=== PATIENT | male | born 1975 | race Hispanic/Latino ===

== ENCOUNTER 2016-07-12 12:55 | Observation (INO) | payer BC ==
[2016-07-12 13:16] VITALS: BMI 37.9
--- NOTE | 2016-07-12 13:20 | ED PDOC ---
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 Donna Ndiaye, with 3 day h/o intermittent L sharp CP. Patient states he was working on a boat on Friday and while physically exerting himself, he started feeling stabbing left-sided CP, SOB, dizziness, and diaphoresis. Episode lasted "a few minutes" but returned the following day. patient states he has been having intermittent episodes of sharp stabbing CP with dyspnea and dizziness since that time. Smoking worsens the symptoms and not smoking and ASA improve the symptoms. Patient saw his child care nurse today, who sent him to the ER. Patient denies headache, confusion, radiation of CP, abd pain, n/v/d, fevers, chills. Patient denies any symptoms currently and states he does not have CP at this time. (Cande Bowers) Past Medical History - Provider Review Nursing Documentation Reviewed: Yes - Travel History Have you recently traveled outside [place] w/in the past 3 mons?: No - Infectious Disease Hx of Infectious Diseases: None - Tetanus Immunization Tetanus Immunization: >10 years Ago - Endocrine/Metabolic Hx Hypothyroidism: Yes - Hematological/Oncological Hx Anemia: Yes - Psychiatric Hx Depression: Yes Hx Emotional Abuse: No Hx Physical Abuse: No Hx Substance Use: No - Past Surgical History Past Surgical History: No Previous - Anesthesia Hx Anesthesia: No Hx Anesthesia Reactions: No Hx Malignant Hyperthermia: No - Suicidal Assessment Feels Threatened In Home Enviroment: No <Cande Bowers - Last Filed: 07/12/16 15:02> Family/Social History - Physician Review Nursing Documentation Reviewed: Yes Family/Social History: CVA/TIA, Diabetes, Hypertension, CAD/[place] Smoking Status: Never Smoked Hx Alcohol Use: Yes Hx Substance Use: No Hx Substance Use Treatment: No <Cande Bowers - Last Filed: 07/12/16 15:02> Allergies/Home Meds <Cande Bowers - Last Filed: 07/12/16 15:02> <Layo Crawford - Last Filed: 07/12/16 15:24> Allergies/Adverse Reactions: Allergies No Known Allergies Allergy (Verified 07/12/16 13:09) Home Medications: Home Meds Medication Instructions Recorded Confirmed Levothyroxine [Synthroid] 0.3 mg PO DAILY 07/12/16 07/12/16 Review of Systems - Physician Review All systems were reviewed & negative as marked: Yes - Review of Systems Constitutional: absent: Fatigue, Fevers Eyes: absent: Vision Changes ENT: Normal Respiratory: SOB (intermittent). absent: Cough, Sputum Cardiovascular: Chest Pain (L stabbing, sharp intermittent CP). absent: Palpitations, Edema, Calf Pain, Syncope Gastrointestinal: absent: Abdominal Pain, Constipation, Diarrhea, Nausea, Vomiting Genitourinary Male: absent: Dysuria, Hematuria Musculoskeletal: absent: Back Pain, Neck Pain Skin: absent: Rash, Skin Lesions Neurological: Dizziness. absent: Headache Endocrine: Diaphoresis Psychiatric: absent: Anxiety, Depression, Suicidal Ideation <Cande Bowers - Last Filed: 07/12/16 15:02> Physical Exam Temperature: Afebrile Blood Pressure: Normal Pulse: Regular Respiratory Rate: Normal Appearance: Positive for: Well-Appearing, Non-Toxic, Comfortable Pain Distress: None Mental Status: Positive for: Alert and Oriented X 3 - Systems Exam Head: Present: Atraumatic, Normocephalic Pupils: Present: PERRL. No: Sluggish Extroacular Muscles: Present: EOMI Conjunctiva: Present: Normal. No: Injected, Icteric Ears: Present: Normal Mouth: Present: Moist Mucous Membranes Neck: Present: Normal Range of Motion. No: Meningeal Signs, JVD Respiratory/Chest: Present: Clear to Auscultation, Good Air Exchange. No: Respiratory Distress, Accessory Muscle Use, Wheezes, Rales, Tender to Palpation Cardiovascular: Present: Regular Rate and Rhythm, Normal S1, S2. No: Murmurs Abdomen: Present: Normal Bowel Sounds. No: Tenderness, Distention, Peritoneal Signs, Rebound, Guarding Upper Extremity: Present: Normal Inspection. No: Cyanosis, Edema Lower Extremity: Present: Normal Inspection. No: Edema, CALF TENDERNESS Neurological: Present: GCS=15, CN II-XII Intact, Speech Normal Skin: Present: Warm, Dry, Normal Color. No: Rashes Psychiatric: Present: Alert, Oriented x 3, Normal Insight, Normal Concentration <LorabarrettCande - Last Filed: 07/12/16 15:02> Vital Signs Temp Pulse Resp BP Pulse Ox 07/12/16 13:04 98.1 F 71 16 127/77 100 Medical Decision Making Re-evaluation Time: 14:22 Reassessment Condition: Re-examined, Improved - Lab Interpretations Interpretation: All labs normal - RAD Interpretation Department Store General Manager: Radiologist - EKG Interpretation Interpreted by ED Physician: Yes Type: 12 lead EKG <LorabarrettCande - Last Filed: 07/12/16 15:02> <YvetteLayo L - Last Filed: 07/12/16 15:24> ED Course and Treatment: 07/12/16 14:03 41 yo M w h/o tobacco abuse presents with intermittent, sharp, stabbing L-sided CP x 3 days. Patient denies current CP. EKG, CXR, labs, trops. ASA. 07/12/16 14:21 Patient states he does not have any CP but does feel burning in the epigastrium , states it feels like heartburn. Will give IV protonix and re-assess. 07/12/16 14:24 Troponin <0.01. HEART score = 1 (0.9-1.7% risk of MACE). 07/12/16 14:[address] Aguirre. Accepts admission to telemetry for CP r/o ACS, Dr. Garcia consult. Resident notified. 07/12/16 15:03 Patient re-examined, feeling better. Discussed need for admission for telemetry observation and completion of cardiac workup. Patient and his mother, who is at bedside, are agreeable to admission. 07/12/16 15:06 residential treatment staff for Dr. Aguirre at bedside in ER. (Cande Bowers) 07/12/16 15:23 40 yo male with chest pain as described. Agree with resident history, physical, assessment, plan and disposition. Patient is a smoker and his chest pain symptoms are concerning for ACS. Case was discussed with Dr. Aguirre who will place on telemetry obs under his service. (Layo Crawford) - Lab Interpretations Lab Results: 07/12/16 13:50 07/12/16 13:50 Lab Results 07/12/16 13:50: WBC 7.8, RBC 4.45, Hgb 10.6 L, Hct 34.5 L, MCV 77.5 L, MCH 23.8 L, MCHC 30.7 L, RDW 15.8 H, Plt Count 297, MPV 9.5, Gran % 49.3 L, Lymph % (Auto ) 41.2 H, [place] % (Auto) 7.7 H, Eos % (Auto) 1.5, Baso % (Auto) 0.3, Gran # 3.86 , Lymph # 3.2, [place] # 0.6, Eos # 0.1, Baso # 0.02, Sodium 138, Potassium 4.3, Chloride 100, Carbon Dioxide 32, Anion Gap 10, BUN 13, Creatinine 0.8, Est GFR ( Amer) > 60, Est GFR (Non-Af Amer) > 60, Random Glucose 86, Calcium 9.7, Magnesium 2.0, Total Bilirubin 0.6, AST 33, ALT 52, Alkaline Phosphatase 95, Lactate Dehydrogenase 375, Total Creatine Kinase 102, Troponin I < 0.01, Total Protein 7.4, Albumin 4.1, Globulin 3.3, Albumin/Globulin Ratio 1.2 - RAD Interpretation Narrative RAD Interpretations (Text): 07/12/16 14:05 CXR - no active disease (Cande Bowers) Radiology Orders: 07/12/16 13:24 CHEST PORTABLE [RAD] Stat - EKG Interpretation EKG Interpretation (Text): 07/12/16 13:31 NSR, 69bpm, no acute ischemic changes, normal intervals. (Cande Bowers) - Medication Orders Current Medication Orders: Discontinued Medications Aspirin (Aspirin) 325 mg PO STAT STA Stop: 07/12/16 13:25 Last Admin: 07/12/16 13:49 Dose: 325 MG Pantoprazole Sodium (Protonix Inj) 40 mg IVP STAT STA Stop: 07/12/16 14:23 Last Admin: 07/12/16 15:15 Dose: 40 MG IVP Administration Document 07/12/16 15:15 [facility] (Rec: 07/12/16 15:15 [facility] [id number]) Charges for Administration # of IVP Administrations 1 Disposition/Present on Arrival - Present on Arrival Any Indicators Present on Arrival: No History of DVT/PE: No History of Uncontrolled Diabetes: No Urinary Catheter: No History of Decub. Ulcer: No History Surgical Site Infection Following: None - Disposition Have Diagnosis and Disposition been Completed?: Yes Disposition Time: 14:51 Patient Plan: Admission, Telemetry <Cande Bowers - Last Filed: 07/12/16 15:02> - Present on Arrival Any Indicators Present on Arrival: No - Disposition Have Diagnosis and Disposition been Completed?: Yes Patient Plan: Observation <Layo Crawford - Last Filed: 07/12/16 15:24> - Disposition Diagnosis: Chest pain Disposition: HOSPITALIZED Patient Problems: Current Active Problems Problem Status Diagnosed Chest pain Acute Condition: FAIR Discharge Instructions (ExitCare): Chest Pain (ED) Print Language: FRENCH Referrals: Donna Ndiaye MD [Primary Care Provider] - Follow up with primary
--- NOTE | 2016-07-12 13:46 | RAD ---
HISTORY: CP COMPARISON: No prior. FINDINGS: LUNGS: No active pulmonary disease. PLEURA: No significant pleural effusion identified, no pneumothorax apparent. CARDIOVASCULAR: Normal. OSSEOUS STRUCTURES: No significant abnormalities. VISUALIZED UPPER ABDOMEN: Normal. OTHER FINDINGS: None. IMPRESSION: No active disease.
[2016-07-12 13:55] LABS: ADD MANUAL DIFF? NO
[2016-07-12 14:05] LABS: BASO # 0.02 K/mm3 (0.0-2.0); BASO % 0.3 % (0.0-3.0); EOS # 0.1 (0.0-0.7); EOS % 1.5 % (1.5-5.0); GRAN # 3.86 (1.4-6.5); GRAN % 49.3 % (50.0-68.0); HEMATOCRIT 34.5 % (42.0-52.0); LYMPH # 3.2 (1.2-3.4); LYMPH % 41.2 % (22.0-35.0); MEAN CELL VOLUME 77.5 fL (80.0-105.0); MEAN CORPUSCULAR HEMOGLOBIN 23.8 pg (25.0-35.0); MEAN CORPUSCULAR HGB CONC 30.7 g/dl (31.0-37.0); MEAN PLATELET VOLUME 9.5 fl (7.0-11.0); MONO # 0.6 (0.1-0.6); MONO % 7.7 % (1.0-6.0); PLATELET COUNT 297 10^3/uL (120.0-450.0); RED CELL DISTRIBUTION WIDTH 15.8 % (11.5-14.5); WHITE BLOOD COUNT 7.8 10^3/ul (4.5-11.0)
[2016-07-12 14:10] LABS: ALB/GLOB RATIO 1.2 (1.1-1.8); ALKALINE PHOSPHATASE 95 U/L (38-133); ALT/SGPT 52 U/L (7-56); AST/SGOT 33 U/L (15-59); BILIRUBIN,TOTAL 0.6 mg/dL (0.2-1.3); BLOOD UREA NITROGEN 13 mg/dL (7-21); CALCIUM 9.7 mg/dL (8.4-10.5); CARBON DIOXIDE 32 mmol/L (21-33); CHLORIDE 100 mmol/L (98-107); GFR AFRICAN-AMERICAN > 60; GLUCOSE,RANDOM 86 mg/dL (70-110); POTASSIUM 4.3 mmol/L (3.6-5.0); SODIUM 138 mmol/L (132-148); TOTAL PROTEIN 7.4 g/dL (5.8-8.3)
[2016-07-12 14:21] LABS: TROPONIN I < 0.01 ng/mL
--- NOTE | 2016-07-12 15:42 | CP.PCM.HP ---
<Isra Borges - Last Filed: 07/12/16 15:53> History of Present Illness - History of Present Illness History of Present Illness: cc: Chest pain HPI: Patient is a 40yo male with past medical history of hypothyroidism, pre- diabetes, hyperlipidemia that presents c/o left-sided chest pain for the past 3 days. Patient reports that the chest pain began when he was doing strenuous activity on a boat. He stated that the chest pain was sharp, non-radiating and 7 -8/10 in severity. Patient stated that he took a baby aspirin and went to relax which provided minimal relief. He states that the chest pain continued throughout the day and night and was not reproducible with movement/activity. He reported that the chest pain was associated with palpitations, shortness of breath and dizziness. He reports that he went to a adult remedial education instructor today, Dr Donna Ndiaye, who had performed an EKG and instructed him to go to the emergency room since he continued to complain of chest pain. Patient denied headache, fever, chills, cough, abdominal pain, nausea, vomiting, dysuria, frequency, urgency, focal weakness, numbness, tingling. 12 point ROS as per HPI, otherwise negative PMHx: hypothyroidism, pre-diabetes, hyperlipidemia PSHx: none Allergies: NKDA Meds: Synthroid as per chart Social Hx: Tobacco user (~1/2ppd for over 30yrs), social alcohol use; denies illicit drugs Family Hx: Father: CHF, CAD; Mother: HTN Present on Admission - Present on Admission Any Indicators Present on Admission: No Past Patient History - Infectious Disease Hx of Infectious Diseases: None - Tetanus Immunizations Tetanus Immunization: >10 years Ago - Past Social History Smoking Status: Never Smoked - ENDOCRINE/METABOLIC Hx Hypothyroidism: Yes - HEMATOLOGICAL/ONCOLOGICAL Hx Anemia: Yes - PSYCHIATRIC Hx Depression: Yes Hx Emotional Abuse: No Hx Physical Abuse: No Hx Substance Use: No - ANESTHESIA Hx Anesthesia: No Hx Anesthesia Reactions: No Hx Malignant Hyperthermia: No Meds Allergies/Adverse Reactions: Allergies Allergy/AdvReac Type Severity Reaction Status Date / Time No Known Allergies Allergy Verified 07/12/16 17:25 Physical Exam - Constitutional Appears: Well, Non-toxic, No Acute Distress - Head Exam Head Exam: ATRAUMATIC, NORMAL INSPECTION, NORMOCEPHALIC - Eye Exam Eye Exam: EOMI, PERRL. absent: Scleral icterus - ENT Exam ENT Exam: Mucous Membranes Moist - Neck Exam Neck exam: Positive for: Normal Inspection. Negative for: Lymphadenopathy, Tenderness, Thyromegaly - Respiratory Exam Respiratory Exam: Clear to Auscultation Bilateral. absent: Rales, Rhonchi, Wheezes - Cardiovascular Exam Cardiovascular Exam: RRR, +S1, +S2. absent: Tachycardia, Clicks, Diastolic murmur, Gallop, Rubs, Systolic Murmur - GI/Abdominal Exam GI & Abdominal Exam: Normal Bowel Sounds, Soft. absent: Distended, Firm, Guarding, Rebound, Tenderness - Extremities Exam Extremities exam: Positive for: normal inspection. Negative for: pedal edema - Back Exam Back exam: NORMAL INSPECTION - Neurological Exam Neurological exam: Alert, CN II-XII Intact, Oriented x3 - Psychiatric Exam Psychiatric exam: Normal Affect, Normal Mood - Skin Skin Exam: Dry, Intact, Normal Color, Warm Results - Vital Signs Recent Vital Signs: Last Vital Signs Temp 98.1 F 07/12/16 13:04 Pulse 71 07/12/16 13:04 Resp 16 07/12/16 13:04 BP 127/77 07/12/16 13:04 Pulse Ox 100 07/12/16 13:04 - Labs Result Diagrams: 07/12/16 13:50 07/12/16 13:50 Labs: Laboratory Results - last 24 hr 07/12/16 13:50 WBC 7.8 RBC 4.45 Hgb 10.6 L Hct 34.5 L MCV 77.5 L MCH 23.8 L MCHC 30.7 L RDW 15.8 H Plt Count 297 MPV 9.5 Gran % 49.3 L Lymph % (Auto) 41.2 H [place] % (Auto) 7.7 H Eos % (Auto) 1.5 Baso % (Auto) 0.3 Gran # 3.86 Lymph # 3.2 [place] # 0.6 Eos # 0.1 Baso # 0.02 Sodium 138 Potassium 4.3 Chloride 100 Carbon Dioxide 32 Anion Gap 10 BUN 13 Creatinine 0.8 Est GFR ( Amer) > 60 Est GFR (Non-Af Amer) > 60 Random Glucose 86 Calcium 9.7 Magnesium 2.0 Total Bilirubin 0.6 AST 33 ALT 52 Alkaline Phosphatase 95 Lactate Dehydrogenase 375 Total Creatine Kinase 102 Troponin I < 0.01 Total Protein 7.4 Albumin 4.1 Globulin 3.3 Albumin/Globulin Ratio 1.2 Assessment & Plan - Assessment and Plan (Free Text) Assessment: 40yo male with history of hypothyroidism, pre-diabetes, hyperlipidemia presents c/o left-sided chest pain associated with palptiations, SOB and dizziness. Plan: 1. Chest pain r/o acs -EKG reviewed; normal sinus rhythm with no acute ST-T wave changes -CXR revealed no active disease -Troponin negative x1, will trend -Pending: TSH, lipid panel, A1c, urine drug screen -Stress test from 05/2013 reviewed; negative stress test at that time -cardiology consulted - Dr. Garcia 2. Anemia -workup pending: Iron, TIBC, ferritin, %saturation, vitb12, folate 3. Hypothyroidism -Continue home synthroid Case discussed with attending, Dr. Aguirre - Date & Time Date: 07/12/16 Time: 15:45 <Neto Aguirre - Last Filed: 08/07/16 10:53> Results - Vital Signs Recent Vital Signs: Last Vital Signs Temp 97.7 F 07/13/16 12:00 Pulse 90 07/13/16 12:00 Resp 20 07/13/16 12:00 BP 118/73 07/13/16 12:00 Pulse Ox 97 07/13/16 05:49 - Labs Result Diagrams: 07/13/16 06:30 07/13/16 06:30 Attending/Attestation - Attestation I have personally seen and examined this patient.: Yes I have fully participated in the care of the patient.: Yes I have reviewed all pertinent clinical information: Yes Notes (Text): 08/07/16 10:53 Medial record note done by resident after patient personally seen and examined by me. I have reviewed the chart and agree that the record accurately reflects my personal evaluation, data review, and course for the patient.
[2016-07-12 16:04] LABS: IRON 33 ug/dL (45-180)
[2016-07-12 16:34] LABS: URINE APPEARANCE CLEAR (CLEAR); URINE BILIRUBIN NEGATIVE (NEGATIVE); URINE BLOOD NEGATIVE (NEGATIVE); URINE COLOR YELLOW (YELLOW); URINE GLUCOSE (UA) NEGATIVE (NEGATIVE); URINE KETONE NEGATIVE (NEGATIVE); URINE LEUKOCYTE ESTERASE NEGATIVE Leu/uL (NEGATIVE); URINE PROTEIN NEGATIVE mg/dL (<30 mg/dL); URINE UROBILINOGEN 0.2 E.U./dL (<1 E.U./dL)
[2016-07-12 20:42] LABS: FREE T4 1.36 ng/dL (0.78-2.19); T4 8.9 ug/dL (5.5-11.0)
[2016-07-12 20:47] LABS: TROPONIN I < 0.01 ng/mL
[2016-07-12] MEDS ORDERED: Pneumococcal 23-Valent Vaccine IM ONE (21:14)
[2016-07-13 00:17] VITALS: RESP 20
[2016-07-13 05:50] VITALS: O2SAT 97
[2016-07-13 07:00] LABS: ADD MANUAL DIFF? NO
[2016-07-13 07:03] LABS: BASO # 0.02 K/mm3 (0.0-2.0); BASO % 0.2 % (0.0-3.0); EOS # 0.2 (0.0-0.7); EOS % 2.8 % (1.5-5.0); GRAN # 4.46 (1.4-6.5); GRAN % 53.6 % (50.0-68.0); HEMATOCRIT 36.6 % (42.0-52.0); LYMPH % 35.5 % (22.0-35.0); MEAN CELL VOLUME 77.5 fL (80.0-105.0); MEAN CORPUSCULAR HEMOGLOBIN 23.7 pg (25.0-35.0); MEAN CORPUSCULAR HGB CONC 30.6 g/dl (31.0-37.0); MEAN PLATELET VOLUME 9.2 fl (7.0-11.0); MONO # 0.7 (0.1-0.6); MONO % 7.9 % (1.0-6.0); PLATELET COUNT 302 10^3/uL (120.0-450.0); RED CELL DISTRIBUTION WIDTH 15.6 % (11.5-14.5); WHITE BLOOD COUNT 8.3 10^3/ul (4.5-11.0)
[2016-07-13 07:21] LABS: ALB/GLOB RATIO 1.2 (1.1-1.8); ALKALINE PHOSPHATASE 89 U/L (38-133); ALT/SGPT 53 U/L (7-56); AST/SGOT 34 U/L (15-59); BILIRUBIN,TOTAL 0.4 mg/dL (0.2-1.3); BLOOD UREA NITROGEN 16 mg/dL (7-21); CALCIUM 9.5 mg/dL (8.4-10.5); CARBON DIOXIDE 31 mmol/L (21-33); CHLORIDE 102 mmol/L (98-107); GFR AFRICAN-AMERICAN > 60; GLUCOSE,RANDOM 94 mg/dL (70-110); SODIUM 140 mmol/L (132-148); TOTAL PROTEIN 7.4 g/dL (5.8-8.3)
[2016-07-13] MEDS ORDERED: Levothyroxine 150 MCG TAB PO SCH (07:30)
[2016-07-13 07:32] LABS: TROPONIN I < 0.01 ng/mL
[2016-07-13] MEDS ORDERED: Levothyroxine 100 MCG TAB PO SCH (10:00)
--- NOTE | 2016-07-13 10:38 | CP.PCM.DIS ---
<Isra Borges - Last Filed: 07/16/16 07:52> Provider - Provider Date of Admission: 07/12/16 15:19 Attending physician: Neto Aguirre MD Primary care physician: Donna Ndiaye MD Consults: Cardiology - Dr. Garcia Time Spent in preparation of Discharge (in minutes): 30 Hospital Course - Lab Results Lab Results: Most Recent Lab Values WBC 8.3 10^3/ul (4.5-11.0) 07/13/16 06:30 RBC 4.72 10^6/uL (3.5-6.1) 07/13/16 06:30 Hgb 11.2 gm/dL (14.0-18.0) L 07/13/16 06:30 Hct 36.6 % (42.0-52.0) L 07/13/16 06:30 MCV 77.5 fL (80.0-105.0) L 07/13/16 06:30 MCH 23.7 pg (25.0-35.0) L 07/13/16 06:30 MCHC 30.6 g/dl (31.0-37.0) L 07/13/16 06:30 RDW 15.6 % (11.5-14.5) H 07/13/16 06:30 Plt Count 302 10^3/uL (120.0-450.0) 07/13/16 06:30 MPV 9.2 fl (7.0-11.0) 07/13/16 06:30 Gran % 53.6 % (50.0-68.0) 07/13/16 06:30 Lymph % (Auto) 35.5 % (22.0-35.0) H 07/13/16 06:30 Bee % (Auto) 7.9 % (1.0-6.0) H 07/13/16 06:30 Eos % (Auto) 2.8 % (1.5-5.0) 07/13/16 06:30 Baso % (Auto) 0.2 % (0.0-3.0) 07/13/16 06:30 Gran # 4.46 (1.4-6.5) 07/13/16 06:30 Lymph # 3.0 (1.2-3.4) 07/13/16 06:30 Bee # 0.7 (0.1-0.6) H 07/13/16 06:30 Eos # 0.2 (0.0-0.7) 07/13/16 06:30 Baso # 0.02 K/mm3 (0.0-2.0) 07/13/16 06:30 Sodium 140 mmol/L (132-148) 07/13/16 06:30 Potassium 5.0 mmol/L (3.6-5.0) 07/13/16 06:30 Chloride 102 mmol/L (98-107) 07/13/16 06:30 Carbon Dioxide 31 mmol/L (21-33) 07/13/16 06:30 Anion Gap 12 (10-20) 07/13/16 06:30 BUN 16 mg/dL (7-21) 07/13/16 06:30 Creatinine 0.8 mg/dL (0.5-1.4) 07/13/16 06:30 Est GFR ( Amer) > 60 07/13/16 06:30 Est GFR (Non-Af Amer) > 60 07/13/16 06:30 Random Glucose 94 mg/dL (70-110) 07/13/16 06:30 Hemoglobin A1c 6.1 % (4.2-6.5) 07/12/16 13:50 Calcium 9.5 mg/dL (8.4-10.5) 07/13/16 06:30 Phosphorus 4.0 mg/dL (2.5-4.5) 07/12/16 13:50 Magnesium 2.0 mg/dL (1.7-2.2) 07/12/16 13:50 Iron 33 ug/dL (45-180) L 07/12/16 13:50 TIBC 444 ug/dL (261-462) 07/12/16 13:50 % Saturation 7 % (20-55) L 07/12/16 13:50 Ferritin 6.9 ng/mL 07/12/16 13:50 Total Bilirubin 0.4 mg/dL (0.2-1.3) 07/13/16 06:30 AST 34 U/L (15-59) 07/13/16 06:30 ALT 53 U/L (7-56) 07/13/16 06:30 Alkaline Phosphatase 89 U/L (38-133) 07/13/16 06:30 Lactate Dehydrogenase 375 U/L (333-699) 07/12/16 13:50 Total Creatine Kinase 102 U/L (35-230) 07/12/16 13:50 Troponin I < 0.01 ng/mL 07/13/16 06:30 Total Protein 7.4 g/dL (5.8-8.3) 07/13/16 06:30 Albumin 4.0 g/dL (3.0-4.8) 07/13/16 06:30 Globulin 3.3 gm/dL 07/13/16 06:30 Albumin/Globulin Ratio 1.2 (1.1-1.8) 07/13/16 06:30 Triglycerides 226 mg/dL (35-160) H 07/12/16 13:50 Cholesterol 171 mg/dL (130-200) 07/12/16 13:50 LDL Cholesterol Direct 97 mg/dL (0-129) 07/12/16 13:50 HDL Cholesterol 32 mg/dL (29-60) 07/12/16 13:50 Vitamin B12 726 pg/mL (239-931) 07/12/16 13:50 Folate 9.0 ng/mL 07/12/16 13:50 Free T4 1.36 ng/dL (0.78-2.19) 07/12/16 20:00 Thyroxine (T4) 8.9 ug/dL (5.5-11.0) 07/12/16 20:00 TSH 3rd Generation 0.06 mIU/mL (0.46-4.68) L 07/12/16 13:50 Urine Color Yellow (YELLOW) 07/12/16 16:10 Urine Appearance Clear (CLEAR) 07/12/16 16:10 Urine pH 6.0 (4.7-8.0) 07/12/16 16:10 Ur Specific [place] 1.025 (1.005-1.035) 07/12/16 16:10 Urine Protein Negative mg/dL (<30 mg/dL) 07/12/16 16:10 Urine Glucose (UA) Negative mg/dL (NEGATIVE) 07/12/16 16:10 Urine Ketones Negative mg/dL (NEGATIVE) 07/12/16 16:10 Urine Blood Negative (NEGATIVE) 07/12/16 16:10 Urine Nitrate Negative (NEGATIVE) 07/12/16 16:10 Urine Bilirubin Negative (NEGATIVE) 07/12/16 16:10 Urine Urobilinogen 0.2 E.U./dL (<1 E.U./dL) 07/12/16 16:10 Ur Leukocyte Esterase Negative Tommy/uL (NEGATIVE) 07/12/16 16:10 Urine Opiates Screen Negative (NEGATIVE) 07/12/16 16:10 Urine Methadone Screen Negative (NEGATIVE) 07/12/16 16:10 Ur Barbiturates Screen Negative (NEGATIVE) 07/12/16 16:10 Ur Phencyclidine Scrn Negative (NEGATIVE) 07/12/16 16:10 Ur Amphetamines Screen Negative (NEGATIVE) 07/12/16 16:10 U Benzodiazepines Scrn Negative (NEGATIVE) 07/12/16 16:10 U Oth Cocaine Metabols Negative (NEGATIVE) 07/12/16 16:10 U Cannabinoids Screen Negative (NEGATIVE) 07/12/16 16:10 - Hospital Course Hospital Course: Patient is a 40yo male with past medical history of hypothyroidism, pre- diabetes and hyperlipidemia that presented c/o left-sided chest pain for 3 days prior to presentation. He reported that the chest pain began when he was doing strenuous activity on a boat and the pain was sharp, non-radiating and 7-8/10 in severity. Patient stated that he took a baby aspirin and went to relax which provided minimal relief. He reporetd that the pain persisted throughout the day and night and was not reproducible with movement/activity. The pain was associated with palpitations, shortness of breath and dizziness. He reported that he went to a engine lathe set up operator, Dr. Donna Ndiaye, who had performed an EKG and instructed him to go to the emergency room since he continued to complain of chest pain. The following workup/results were obtained during the course of the patient's hospital admission: 1. Chest pain r/o acs -EKG reviewed; normal sinus rhythm with no acute ST-T wave changes -CXR revealed no active disease -Troponin negative x3 -Drug screen negative -A1c within normal limits -TSH low, Free t4 within normal limits -Stress test from 05/2013 reviewed; negative stress test at that time -Cardiology consulted - Dr. Garcia 2. Anemia -Worked up: Iron, TIBC, ferritin, %saturation, vitb12, folate -Anemia appears to be iron deficiency in etiology; Patient reported that he had an endoscopy and colonoscopy done several months prior for the anemia and was told he had internal/external hemorrhoids. -Patient was instructed to follow up with his primary doctor and harm reduction worker regarding the iron deficiency anemia upon discharge. Patient reported understanding. 3. Hypothyroidism -Continue home synthroid Disposition: Throughout patient's hospital course he reported resolution of his chest pain. The results of his tests were discussed with him and he was instructed to follow up as an outpatient for stress test with Dr. Garcia. He was also instructed to follow up with Dr. Fontaine as an outpatient. The patient communicated understanding of his results and instructions. All questions were answered. He was agreeable to discharge with follow up. - Date & Time of H&P Date of H&P: 07/12/16 Discharge Exam - Head Exam Head Exam: ATRAUMATIC, NORMAL INSPECTION, NORMOCEPHALIC - Eye Exam Eye Exam: EOMI, PERRL - ENT Exam ENT Exam: Mucous Membranes Moist - Respiratory Exam Respiratory Exam: Clear to PA & Lateral. absent: Accessory Muscle Use, Rales, Rhonchi, Wheezes, Respiratory Distress, Stridor - Cardiovascular Exam Cardiovascular Exam: RRR, +S1, +S2. absent: Clicks, Gallop, JVD, Rubs, Systolic Murmur - GI/Abdominal Exam GI & Abdominal Exam: Normal Bowel Sounds, Soft, Unremarkable. absent: Distended , Firm, Guarding, Rebound, Rigid, Tenderness - Extremities Exam Extremities exam: normal inspection - Neurological Exam Neurological exam: Alert, CN II-XII Intact, Normal Gait, Oriented x3 - Psychiatric Exam Psychiatric exam: Normal Affect, Normal Mood - Skin Skin Exam: Dry, Intact, Normal Color, Warm Discharge Plan - Follow Up Plan Condition: FAIR Disposition: HOME/ ROUTINE Instructions: How to Stop Smoking (DC), Cigarette Smoking and Your Health (GEN) Additional Instructions: 1. Follow up with your primary doctor, Dr. Fontaine within 1-2 weeks of discharge. 2. Follow up with your engine lathe set up operator, Dr. Garcia within 1-2 weeks of discharge. 3. Return to the emergency room should your condition worsen or change in severity/quality. 4. Call Friday to set up Stress Test for Friday or Friday. 5. Dr. Garcia orders to take one aspirin daily. In the event you experience any difficult breathing, unusual bleeding, temperature over 100F, severe pain, change in mental status, or any worsening of your condition, contact your primary care physician or the nearest emergency department immediately. Please check the room for all your belongings prior to leaving. Referrals: Crut Fontaine MD [Staff Provider] - Tuan Garcia MD [Staff Provider] - <Curt Fontaine - Last Filed: 08/02/16 09:18> Provider - Provider Date of Admission: 07/12/16 15:19 Attending physician: Neto Aguirre MD Primary care physician: Donna Ndiaye MD Hospital Course - Lab Results Lab Results: Most Recent Lab Values WBC 8.3 10^3/ul (4.5-11.0) 07/13/16 06:30 RBC 4.72 10^6/uL (3.5-6.1) 07/13/16 06:30 Hgb 11.2 gm/dL (14.0-18.0) L 07/13/16 06:30 Hct 36.6 % (42.0-52.0) L 07/13/16 06:30 MCV 77.5 fL (80.0-105.0) L 07/13/16 06:30 MCH 23.7 pg (25.0-35.0) L 07/13/16 06:30 MCHC 30.6 g/dl (31.0-37.0) L 07/13/16 06:30 RDW 15.6 % (11.5-14.5) H 07/13/16 06:30 Plt Count 302 10^3/uL (120.0-450.0) 07/13/16 06:30 MPV 9.2 fl (7.0-11.0) 07/13/16 06:30 Gran % 53.6 % (50.0-68.0) 07/13/16 06:30 Lymph % (Auto) 35.5 % (22.0-35.0) H 07/13/16 06:30 Bee % (Auto) 7.9 % (1.0-6.0) H 07/13/16 06:30 Eos % (Auto) 2.8 % (1.5-5.0) 07/13/16 06:30 Baso % (Auto) 0.2 % (0.0-3.0) 07/13/16 06:30 Gran # 4.46 (1.4-6.5) 07/13/16 06:30 Lymph # 3.0 (1.2-3.4) 07/13/16 06:30 Bee # 0.7 (0.1-0.6) H 07/13/16 06:30 Eos # 0.2 (0.0-0.7) 07/13/16 06:30 Baso # 0.02 K/mm3 (0.0-2.0) 07/13/16 06:30 Sodium 140 mmol/L (132-148) 07/13/16 06:30 Potassium 5.0 mmol/L (3.6-5.0) 07/13/16 06:30 Chloride 102 mmol/L (98-107) 07/13/16 06:30 Carbon Dioxide 31 mmol/L (21-33) 07/13/16 06:30 Anion Gap 12 (10-20) 07/13/16 06:30 BUN 16 mg/dL (7-21) 07/13/16 06:30 Creatinine 0.8 mg/dL (0.5-1.4) 07/13/16 06:30 Est GFR ( Amer) > 60 07/13/16 06:30 Est GFR (Non-Af Amer) > 60 07/13/16 06:30 Random Glucose 94 mg/dL (70-110) 07/13/16 06:30 Hemoglobin A1c 6.1 % (4.2-6.5) 07/12/16 13:50 Calcium 9.5 mg/dL (8.4-10.5) 07/13/16 06:30 Phosphorus 4.0 mg/dL (2.5-4.5) 07/12/16 13:50 Magnesium 2.0 mg/dL (1.7-2.2) 07/12/16 13:50 Iron 33 ug/dL (45-180) L 07/12/16 13:50 TIBC 444 ug/dL (261-462) 07/12/16 13:50 % Saturation 7 % (20-55) L 07/12/16 13:50 Ferritin 6.9 ng/mL 07/12/16 13:50 Total Bilirubin 0.4 mg/dL (0.2-1.3) 07/13/16 06:30 AST 34 U/L (15-59) 07/13/16 06:30 ALT 53 U/L (7-56) 07/13/16 06:30 Alkaline Phosphatase 89 U/L (38-133) 07/13/16 06:30 Lactate Dehydrogenase 375 U/L (333-699) 07/12/16 13:50 Total Creatine Kinase 102 U/L (35-230) 07/12/16 13:50 Troponin I < 0.01 ng/mL 07/13/16 06:30 Total Protein 7.4 g/dL (5.8-8.3) 07/13/16 06:30 Albumin 4.0 g/dL (3.0-4.8) 07/13/16 06:30 Globulin 3.3 gm/dL 07/13/16 06:30 Albumin/Globulin Ratio 1.2 (1.1-1.8) 07/13/16 06:30 Triglycerides 226 mg/dL (35-160) H 07/12/16 13:50 Cholesterol 171 mg/dL (130-200) 07/12/16 13:50 LDL Cholesterol Direct 97 mg/dL (0-129) 07/12/16 13:50 HDL Cholesterol 32 mg/dL (29-60) 07/12/16 13:50 Vitamin B12 726 pg/mL (239-931) 07/12/16 13:50 Folate 9.0 ng/mL 07/12/16 13:50 Free T4 1.36 ng/dL (0.78-2.19) 07/12/16 20:00 Thyroxine (T4) 8.9 ug/dL (5.5-11.0) 07/12/16 20:00 TSH 3rd Generation 0.06 mIU/mL (0.46-4.68) L 07/12/16 13:50 Urine Color Yellow (YELLOW) 07/12/16 16:10 Urine Appearance Clear (CLEAR) 07/12/16 16:10 Urine pH 6.0 (4.7-8.0) 07/12/16 16:10 Ur Specific [place] 1.025 (1.005-1.035) 07/12/16 16:10 Urine Protein Negative mg/dL (<30 mg/dL) 07/12/16 16:10 Urine Glucose (UA) Negative mg/dL (NEGATIVE) 07/12/16 16:10 Urine Ketones Negative mg/dL (NEGATIVE) 07/12/16 16:10 Urine Blood Negative (NEGATIVE) 07/12/16 16:10 Urine Nitrate Negative (NEGATIVE) 07/12/16 16:10 Urine Bilirubin Negative (NEGATIVE) 07/12/16 16:10 Urine Urobilinogen 0.2 E.U./dL (<1 E.U./dL) 07/12/16 16:10 Ur Leukocyte Esterase Negative Tommy/uL (NEGATIVE) 07/12/16 16:10 Urine Opiates Screen Negative (NEGATIVE) 07/12/16 16:10 Urine Methadone Screen Negative (NEGATIVE) 07/12/16 16:10 Ur Barbiturates Screen Negative (NEGATIVE) 07/12/16 16:10 Ur Phencyclidine Scrn Negative (NEGATIVE) 07/12/16 16:10 Ur Amphetamines Screen Negative (NEGATIVE) 07/12/16 16:10 U Benzodiazepines Scrn Negative (NEGATIVE) 07/12/16 16:10 U Oth Cocaine Metabols Negative (NEGATIVE) 07/12/16 16:10 U Cannabinoids Screen Negative (NEGATIVE) 07/12/16 16:10 Serum Immunofixation See note (()) 07/12/16 13:50 Attending/Attestation - Attestation I have personally seen and examined this patient.: Yes I have fully participated in the care of the patient.: Yes I have reviewed all pertinent clinical information, including history, physical exam and plan: Yes Notes (Text): 08/02/16 09:18 Medical record note made by the resident after discussion with my direction and input after the patient was personally seen and examined by me. I have reviewed the chart and agree that the record accurately reflects by personal performance of the history, physical exam, data review, and medical decision-making, in the course for the patient. I have also personally directed the plan of care.
--- NOTE | 2016-07-13 10:53 | CON ---
DATE: 07/13/2016 HISTORY OF PRESENT ILLNESS: The patient is a 40-year-old male who presents with an episode of exerti onal chest discomfort on Friday, several days ago. He has had no repeated episodes since. His cardiac risk factors include a strong family history for CAD. In addition, the patient is a heavy smoker for many years. He denies diabetes mellitus, no hypertension and hypercholesterolemia. No previous cardiac history. He continues to smoke. SOCIAL HISTORY: He is an active smoker. Works for the [employer]. REVIEW OF SYSTEMS: A 14-point review of systems was reviewed in detail. No ongoing cardiac symptoma tology is noted. On physical exam, his blood pressure is 138/78, the heart rate is in the 60s. NECK: Negative JVD. LUNGS: Without rales. HEART: Reveals S1, S2. EXTREMITIES: Without edema. EKG is within normal limits. LABORATORIES: Troponins are negative x 2, the cholesterol was 171. The hemoglobin is 11.2. IMPRESSION: 1. Transient chest discomfort. 2. High probability for coronary artery disease, given his strong family history and smoking history. 3. Need to rule out chronic obstructive pulmonary disease from the smoking. 4. No evidence for acute coronary syndrome. 5. History of hypothyroidism. 6. Anemia. Given these findings, there is no evidence for acute coronary syndrome. I have discussed with the ana paredes, as well as his mother, about the need to stop smoking. I have given the patient an appointmen t for an outpatient stress test, which should be done early next week. Tuan Garcia MD cc: [phone] TT: 07/13/2016 10:52:52 Confirmation # [id number] Dictation # [id number] eric
--- NOTE | 2016-07-13 11:19 | CARD ---
APPROVED REPORT EKG Measurement Heart [id number] <Conclusion> Normal sinus rhythm Normal ECG
[2016-07-13 12:56] VITALS: BP 118/73; PULSE 90; TEMP 97.7
== END 2016-07-13 14:28 | disposition home or self-care (01) ==
LOC: ED 12:55 → ERH 15:19 → 2RNO 18:21
PROVIDERS: ADMIT Internal Medicine; ATTEND Internal Medicine
DX: R07.89 Other chest pain (principal); E78.5 Hyperlipidemia, unspecified; E03.9 Hypothyroidism, unspecified; R73.03 Prediabetes; F17.210 Nicotine dependence, cigarettes, uncomplicated; D64.9 Anemia, unspecified
CPT/HCPCS: 36415; 71010; 80053; 80061; 81003; 82550; 82607; 82728; 82746; 83036; 83540; 83550; 83615; 83735; 84100; 84439; 84443; 84481; 84484; 85025; 86334; 93005; 96374; 99285; C9113; G0378; G0480

== ENCOUNTER 2016-12-20 06:01 | Day surgery (SDC) | payer BC ==
[2016-12-17 08:15] VITALS: BMI 38.9
[2016-12-20 06:40] LABS: BASO # 0.03 K/mm3 (0.0-2.0); BASO % 0.4 % (0.0-3.0); EOS # 0.2 (0.0-0.7); EOS % 2.7 % (1.5-5.0); GRAN # 3.97 (1.4-6.5); GRAN % 51.3 % (50.0-68.0); HEMATOCRIT 35.6 % (42.0-52.0); LYMPH % 38.1 % (22.0-35.0); MEAN CELL VOLUME 75.9 fl (80.0-105.0); MEAN CORPUSCULAR HGB CONC 30.3 g/dl (31.0-37.0); MEAN PLATELET VOLUME 8.8 fl (7.0-11.0); MONO # 0.6 (0.1-0.6); MONO % 7.5 % (1.0-6.0); RED CELL DISTRIBUTION WIDTH 16.6 % (11.5-14.5); WHITE BLOOD COUNT 7.7 10^3/ul (4.5-11.0)
[2016-12-20 06:51] LABS: BLOOD UREA NITROGEN 15 mg/dL (7-21); CALCIUM 9.2 mg/dL (8.4-10.5); CARBON DIOXIDE 29 mmol/L (21-33); CHLORIDE 106 mmol/L (98-107); CHOLESTEROL 162 mg/dL (130-200); GFR AFRICAN-AMERICAN > 60; GLUCOSE,RANDOM 96 mg/dL (70-110); INR 0.99 (0.93-1.08); PARTIAL THROMBOPLASTIN TIME 25.8 Seconds (23.7-30.8); POTASSIUM 4.3 mmol/L (3.6-5.0); SODIUM 146 mmol/L (132-148)
[2016-12-20] MEDS ORDERED: Lidocaine 2% Inj (20ml) ONE (08:01)
[2016-12-20] MEDS ORDERED: Iodixanol 320 MG/ML 200 ML BOTTLE IV ONE (08:01)
[2016-12-20] MEDS ORDERED: Midazolam 2 MG/2 ML VIAL ONE ×3 (08:30→09:21)
[2016-12-20] MEDS ORDERED: Iodixanol 320 MG/ML 100 ML BOTTLE IV ONE (08:30)
[2016-12-20] MEDS ORDERED: Sodium Chloride 0.9% 1,000 ML IV SCH (09:45)
[2016-12-20 10:00] VITALS: RESP 20; TEMP 98.2
[2016-12-20 10:28] VITALS: O2SAT 96
--- NOTE | 2016-12-20 11:45 | CARDCATH ---
PROCEDURE DATE: 12/20/2016 HISTORY OF PRESENT ILLNESS: The patient is a 41-year-old male with cardiac risk factors of hypertension and active smoking who presents with recurrence of chest pain. A stress test was performed, which was negative. However, at the request of his cognos developer, Dr. Ndiaye,the patient was requested to have a cardiac catheterization because of his recurrent anginal symptoms despite a normal stress test. PROCEDURE: Left heart catheterization with coronary angiography and left ventriculogram. The right femoral artery was cannulated with a 6-Monts[place]atian sheath. There were no complications. The findings on catheterization revealed a left ventricle that contracted normally. Estimated ejection fraction is 60%. His coronary anatomy revealed a right dominant circulation. The RCA was found to be a large vessel and within normal limits. The left main artery was unremarkable. The circumflex artery and obtuse marginal branches revealed intimal irregularities without significant stenoses. The LAD and diagonal vessels revealed intimal irregularities without critical lesions; however, in the midportion to the distal portion of the LAD, there was diffuse disease throughout the vessel including a 50% stenosis in the distal portion. 200 mcg of IC nitroglycerin was given with improvement of the caliber of the mid and distal LAD. The patient tolerated the procedure well. Angio-Seal was used to close the femoral artery site. In summary, the procedure revealed normal LV function. Single-vessel CAD with a diffusely diseased mid to distal LAD including a distal 50% stenoses which all improved with IC nitroglycerin consistent with coronary spasm likely secondary to atherosclerosis as well as his active smoking. Given these findings, I have discussed with the patient about the need to stop smoking. He needs to be on daily aspirin, statin therapy. He will see Dr. Ndiaye in the office for further followup care, for consideration of a calcium channel aleksandra to help reduce spasm. Tuan Garcia MD
[2016-12-20 13:05] VITALS: BP 131/78; PULSE 59
--- NOTE | 2016-12-21 01:32 | CARD ---
APPROVED REPORT EKG Measurement Heart [id number] <Conclusion> Sinus bradycardia Otherwise normal ECG
== END 2016-12-20 16:00 | disposition home or self-care (01) ==
LOC: CATH 06:01
PROVIDERS: ATTEND Internal Medicine Cardiovascular Disease
DX: I25.111 Atherosclerotic heart disease of native coronary artery with angina pectoris with documented spasm (principal); F17.210 Nicotine dependence, cigarettes, uncomplicated; J44.9 Chronic obstructive pulmonary disease, unspecified
CPT/HCPCS: 36415; 80048; 80061; 85025; 85610; 85730; 86850; 86900; 93005; 93458; 99152; C1760; C1769; C2629; J1644; J2250; J3010; J7040; Q9967